=== PATIENT | female | born 2000 | race Caucasian/White ===

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

== ENCOUNTER 2020-04-04 11:47 | Emergency (ER) | payer OTHER, MEDICAID, SELFPAY ==
[2020-04-04 11:58] VITALS: BP 123/71; PULSE 92; RESP 18; TEMP 36.4; O2SAT 100; BMI 21.7
--- NOTE | 2020-04-04 12:13 | ED.EXTPRO ---
HPI - Extremity Problem <DAKOTAH Edwards - Last Filed: 04/04/20 13:51> General Chief complaint: Extremity Problem,Nontraumatic Stated complaint: thinks she has an infection Time Seen by Provider: 04/04/20 11:50 History of Present Illness HPI Narrative: 20yo female presents to the emergency department for swelling in her left index finger. She states she injected heroin into her finger approximately 2 days ago. She noticed some swelling and pain today. She states ?I do not want to get an abscess, I have never had an abscess so I am here to prevent one.Patient states she is able to move her finger, notes tenderness with palpation to the area. She denies any systemic symptoms such as fevers, chills, nausea, vomiting, diarrhea, chest pain, shortness of breath, or other concerns. She denies any other areas of concern. Related Data Home Medications Medication Instructions Recorded Confirmed acetaminophen PO #0 12/05/17 Previous Rx's Medication Instructions Recorded norelgestromin-ethin.estradiol 1 patch TD QWEEK #3 patch 05/28/17 [Xulane] cetirizine 10 mg PO QDAY #14 tab 06/30/17 permethrin 0 jazlyn TOPICAL X1 #60 gm 06/30/17 metronidazole [Flagyl] 500 mg PO BID #14 tab 12/05/17 doxycycline hyclate 100 mg PO BID 10 Days #20 cap 04/04/20 Allergies Allergy/AdvReac Type Severity Reaction Status Date / Time latex [LATEX] Allergy Intermediate HIVES Verified 04/04/20 12:03 ALMONDS Allergy Severe THROAT Uncoded 04/04/20 12:03 SWELLING Review of Systems <DAKOTAH Edwards - Last Filed: 04/04/20 13:51> Review of Systems Narrative: REVIEW OF SYSTEMS: GENERAL: Denies fever or chills. HENT: Denies head trauma. EYE: Denies double vision or vision loss. CARDIOVASCULAR: Denies syncope. MUSCULOSKELETAL: Denies weakness, or deformities. INTEGUMENTARY: Complains of left finger redness, see HPI. NEURO: Denies numbness or tingling. Patient History <DAKOTAH Edwards - Last Filed: 04/04/20 13:51> Medical History Heroin use (Acute) Social History Smoking Status: Current every day smoker Smoking Status: Current every day smoker tobacco type: cigarettes alcohol intake frequency: 0-2 drinks per day Substance Use Type: heroin Exam <DAKOTAH Edwards - Last Filed: 04/04/20 13:51> Initial Vital Signs Initial Vital Signs: Vital Signs Temperature 97.5 F L 04/04/20 11:58 Pulse Rate 92 H 04/04/20 11:58 Respiratory Rate 18 04/04/20 11:58 Blood Pressure 123/71 04/04/20 11:58 Pulse Oximetry 100 04/04/20 11:58 PHYSICAL EXAMINATION: GENERAL: Well groomed, alert, and cooperative. Answers questions promptly and appropriately. Vital signs noted. HENT: Normocephalic, atraumatic. RESPIRATORY: Normal respiratory rate, trachea midline, airway patent. No stridor, nasal flaring or accessory muscle use. MUSCULOSKELETAL: Normal gait and coordination. Equal tone and mass bilaterally. EXTREMITIES: CMS intact. Moves all extremities. SKIN: Warm, dry, soft, appropriate color for ethnicity. There is approximately 2 cm by 4 cm of indurated erythema noted to the lateral aspect of the base of left finger. No swelling or tenderness over MCP or MIP joint. Patient able to move finger without pain or difficulty, full range of motion. No fluctuation palpated. No visualized phlebitis. NEURO: Alert and Oriented X 3. Good coordination. PSYCH: Appropriate affect and mood. <Kolby Nevarez MD - Last Filed: 04/04/20 19:59> Initial Vital Signs Initial Vital Signs: Vital Signs Temperature 97.5 F L 04/04/20 11:58 Pulse Rate 92 H 04/04/20 11:58 Respiratory Rate 18 04/04/20 11:58 Blood Pressure 123/71 04/04/20 11:58 Pulse Oximetry 100 04/04/20 11:58 Course <DAKOTAH Edwards - Last Filed: 04/04/20 13:51> Vital Signs Vital signs: Vital Signs - 8 hr 04/04/20 11:58 Temperature 97.5 F L Pulse Rate 92 H Respiratory Rate 18 Blood Pressure 123/71 Pulse Oximetry 100 <Kolby Nevarez MD - Last Filed: 04/04/20 19:59> Vital Signs Vital signs: Vital Signs - 8 hr 04/04/20 11:58 Temperature 97.5 F L Pulse Rate 92 H Respiratory Rate 18 Blood Pressure 123/71 Pulse Oximetry 100 MDM - Extremity (Nontraumatic) <DAKOTAH Edwards - Last Filed: 04/04/20 13:51> Medical Records Attestation: I reviewed the patient's medical records. Lab Data Attestation: I reviewed the patient's lab results. MDM Narrative Medical decision making narrative: 20-year-old female is a current heroin user, presents emergency department for swelling to her left finger. No fluctuance was palpated, swelling is localized to proximal phalanges, no joint involvement. Patient is hemodynamically stable, no systemic symptoms such as fever or tachycardia. Patient was started on doxycycline to cover for MRSA given high risk for MRSA. No visual phlebitis. She was encouraged to return immediately for any new or worsening symptoms. Patient agreed to plan of care verbalized understanding. Discharge Plan Departure Patient Disposition: Home Clinical Impression: Cellulitis Qualifiers: Site of cellulitis: extremity Site of cellulitis of extremity: upper extremity Laterality: left Qualified Code(s): L03.114 - Cellulitis of left upper limb Discharge Date/Time: 04/04/20 12:25 Instructions: DI for Cellulitis -- Adult Activity Restrictions/Additional Instructions: Thank you for entrusting me with your care today. As discussed, I prescribed you an antibiotic for the infection in your finger. Please soak your finger in warm water and Epson salt multiple times a day. Please return to the emergency department for any new or worsening symptoms such as increasing swelling, redness, purulent drainage, high fevers, or any other concerns. Prescriptions: New doxycycline hyclate 100 mg capsule 100 mg PO BID 10 Days Qty: 20 RF: 0 No Action norelgestromin-ethin.estradiol [Xulane] 0.15 MG/0.035 MG patch weekly 1 patch TD QWEEK Qty: 3 RF: 11 cetirizine 10 MG tablet 10 mg PO QDAY Qty: 14 RF: 0 permethrin 5 % cream 0 jazlyn Topical X1 Qty: 60 RF: 0 acetaminophen 325 mg tablet PO Qty: 0 RF: 0 metronidazole [Flagyl] 500 MG tablet 500 mg PO BID Qty: 14 RF: 0 Referrals: Carrillo Rossi MD [Primary Care Provider] -
== END 2020-04-04 12:25 | disposition home or self-care (01) ==
PROVIDERS: Emergency Provider Nurse Practitioner; Family Provider Pediatrics; PCP Pediatrics
DX: L03.114 Cellulitis of left upper limb (principal)
CPT/HCPCS: 99281

== ENCOUNTER 2021-10-13 05:02 | Emergency (ER) | payer OTHER, MEDICAID, SELFPAY ==
[2021-10-13 05:07] VITALS: BP 119/73; PULSE 103; RESP 17; TEMP 36.1; O2SAT 100; BMI 18.6
--- NOTE | 2021-10-13 05:21 | ED_ITS ---
HPI - Chest Pain General Chief Complaint: Arrhythmia/Palpitations Stated Complaint: Feels heart isnt beating right Time Seen by Provider: 10/13/21 05:05 History of Present Illness HPI narrative: 21-year-old female smoker with history of IV drug abuse presents with a chief complaint of at least a few days of feeling as if her heart is not beating right, irregular, and fast, she can feel it in her neck. She denies chest pain or shortness of breath. She is not dizzy nor weak or lightheaded. She denies any fever chills nor nausea or vomiting. She states that she has developed a decently large abscess that has been draining spontaneously on her left lower leg. Also she admits to upwards of 15 lb of unexplained weight loss over the past few weeks. She denies any dysuria, frequency or urgency. She denies any vaginal bleeding or discharge. She denies any change in her diet Related Data Home Medications Medication Instructions Recorded Confirmed acetaminophen 325 mg tablet PO #0 12/05/17 Previous Rx's Medication Instructions Recorded norelgestromin 150 mcg-e.estradiol 1 patch TD QWEEK #3 patch 05/28/17 35 mcg/24 hr weekly transderm patch (Xulane) cetirizine 10 mg tablet 10 mg PO QDAY #14 tab 06/30/17 permethrin 5 % topical cream 0 jazlyn TOPICAL X1 #60 gm 06/30/17 metronidazole 500 mg tablet 500 mg PO BID #14 tab 12/05/17 (Flagyl) doxycycline hyclate 100 mg tablet 100 mg PO BID #20 tab 10/13/21 Allergies Allergy/AdvReac Type Severity Reaction Status Date / Time latex [LATEX] Allergy Intermediate HIVES Verified 04/04/20 12:03 ALMONDS Allergy Severe THROAT Uncoded 04/04/20 12:03 SWELLING Review of Systems Review of Systems Narrative: GENERAL: See HPI HEENT: Denies sinus pain, ear pain, sore throat, difficulty swallowing, dizziness. RESPIRATORY: Denies dyspnea, cough, wheezing, hemoptysis, sputum. CARDIOVASCULAR: See HPI GASTROINTESTINAL: Denies nausea, vomiting, abdominal pain, diarrhea, constipation, melena. : Denies dysuria, frequency, incontinence, hematuria, urinary retention. MUSCULOSKELETAL: denies weakness, joint pain, or bony pain SKIN: See HPI NEUROLOGIC: Denies weakness, headache, numbness, change in speech, confusion, seizures, incoordination. PSYCHIATRIC: No concerning psychosocial issues. 12 point review of systems is negative except for those stated above Patient History Medical History Heroin use Social History Smoking Status: Current every day smoker Smoking Status: Current every day smoker tobacco type: cigarettes alcohol intake frequency: 0-2 drinks per day Substance Use Type: heroin Exam Narrative Exam Narrative: GENERAL: [21] year old patient appears stated age. Well-developed patient, in mild distress. HEAD: Atraumatic. Normocephalic. EYES: Pupils equal round and reactive. Extraocular motions intact. No scleral icterus. No injection or drainage. ENT: Nose without bleeding, purulent drainage. Throat without erythema, t onsillar hypertrophy or exudate. Airway patent. NECK: Trachea midline. Non tender CARDIOVASCULAR: Regular rate and rhythm without murmurs, gallops, or rubs. RESPIRATORY: Clear to auscultation. Breath sounds equal bilaterally. No wheezes, rales, or rhonchi. GASTROINTESTINAL: Abdomen soft, non-tender, nondistended. EXTREMITIES: 3 x 3 cm area of fluctuance and possible spontaneous drainage with a large area of induration on the left medial calf No edema or joint tenderness. BACK: Nontender without deformity or crepitance. No flank tenderness. NEURO: AOx3. SKIN: No rash or erythema of visible areas Initial Vital Signs Initial Vital Signs: Vital Signs Temperature 97.0 F L 10/13/21 05:07 Pulse Rate 103 H 10/13/21 05:07 Respiratory Rate 17 10/13/21 05:07 Blood Pressure 119/73 10/13/21 05:07 Pulse Oximetry 100 10/13/21 05:07 Procedures Abscess I/D I&D #1: Site: lower extremity Side (if applicable): left Local Anesthetic: lidocaine 1% and with bicarb Amount of anesthesia used (mL): 4 Technique: incised with #11 blade Amount of fluid expressed (mL): 6 Course Orders Ordered: Discontinued Medications Doxycycline Hyclate (Doxycycline Hyclate 100 Mg Tablet) 100 mg PO NOW ONE Stop: 10/13/21 06:53 Last Admin: 10/13/21 06:57 Dose: 100 mg Documented by: KWOYSKI Sodium Chloride (Normal Saline 0.9%) 1,000 mls @ 1,000 mls/hr IV BOLUS ONE Stop: 10/13/21 06:17 Last Admin: 10/13/21 06:57 Dose: Not Given Documented by: DALILA Lidocaine/Sodium Bicarbonate (Lido 1%/Sod Bicarb 8.4% (10ml) 10 Ml Syringe) 10 ml INJ NOW ONE Stop: 10/13/21 05:19 Last Admin: 10/13/21 05:27 Dose: 10 ml Documented by: SRUTHI MDM - Chest Pain Lab Data Result diagrams: 10/13/21 06:00 Labs: Lab Results 10/13/21 10/13/21 10/13/21 Range/Units 05:50 06:00 06:00 Sodium 137 (137-145) mmol/L Potassium 3.6 (3.4-5.1) mmol/L Chloride 104 (98-107) mmol/L Carbon Dioxide 29 (22-32) mmol/L BUN 12 (7-17) mg/dL Creatinine 0.41 L (0.52-1.04) mg/dL Estimated GFR > 60.0 (>60) mL/min BUN/Creatinine Ratio 29.3 H (6-22) Glucose 125 H (70-100) mg/dL Calcium 9.0 (8.4-10.2) mg/dL Magnesium 2.1 (1.6-2.3) mg/dL Total Bilirubin 1.2 (0.2-1.3) mg/dL AST 36 (14-36) IU/L ALT 35 H (<35) IU/L Alkaline Phosphatase 96 (38-126) U/L Total Creatine Kinase 71 (30-135) U/L CK-MB (CK-2) TNP CK-MB (CK-2) Rel Index TNP Troponin I < 0.012 (0.01-0.034) ng/mL Total Protein 7.5 (6.3-8.2) g/dL Albumin 3.9 (3.5-5.0) g/dL Globulin 3.6 (1.7-4.1) g/dL Albumin/Globulin Ratio 1.1 (1.0-2.8) TSH 2.72 (0.47-4.68) uIU/mL Urine RBC None seen (0-5/HPF) Urine WBC 0-1/hpf (0-5/HPF) Ur Squamous Epith Cells 0-1 /hpf (0-5/HPF) Urine Bacteria Occasional (0-1) (None) Ur Culture Indicated? Culture not indicate Urine Dip Bedside Urine Glucose Negative Bedside Urine Bilirubin - Negative Bedside Urine Ketone - Negative Urine Specific [place] 1.010 Bedside Urine Occult Blood - Negative Bedside Urine pH 7.0 Bedside Urine Protein - Negative Bedside Urine Urobilinogen - Negative Bedside Urine Nitrite - Negative Bedside Urine Leukocytes +/- 15 Esterase MDM Narrative Medical decision making narrative: Patient with reassuring history and physical exam. Initially she was slightly tachycardic but calmed down quickly after the initial set of vitals. She has no signs of sepsis or systemic complaints. Abscess was drained, culture obtained and sent, antibiotics initiated. Patient given return precautions and questions answered to her apparent satisfaction Discharge Plan Departure Patient Disposition: Home Clinical Impression: Abscess of left leg, Frequent PVCs Instructions: DI for Arrhythmias, DI for Skin Abscess Activity Restrictions/Additional Instructions: *You have been diagnosed with [ cutaneous abscess with surrounding cellulitis and frequent PVCs] *What to do: *Please continue to take your regular medications as directed. [ ] New medication prescriptions sent to your pharmacy: [ ] [x ] New medication written as a paper prescription [ ] No new medications given *Please follow up with your primary care provider in 2-3 days, call for an appointment. Let them know you were seen in the Emergency Department and that we ask that you be seen in follow up. We will electronically transmit a record of today's note if your PCP is in our system *If you do not have a primary care provider please contact the [facility] [employer] line at [phone]. They will ask some questions about your medical history and help get you set up with a doctor in the community. *Return to Emergency Department if you should have any new, worsening or concerning symptoms, such as [fever greater than 101 F, shaking chills, worsening pain, persistent vomiting or other bothersome symptoms] Prescriptions: New doxycycline hyclate 100 mg tablet 100 mg PO BID Qty: 20 0RF No Action norelgestromin-ethin.estradiol [Xulane] 0.15 MG/0.035 MG patch weekly 1 patch TD QWEEK Qty: 3 11RF cetirizine 10 MG tablet 10 mg PO QDAY Qty: 14 0RF permethrin 5 % cream 0 jazlyn Topical X1 Qty: 60 0RF acetaminophen 325 mg tablet PO Qty: 0 0RF metronidazole [Flagyl] 500 MG tablet 500 mg PO BID Qty: 14 0RF Referrals: Carrillo Rossi MD [Primary Care Provider] -
[2021-10-13] MEDS: LIDO 1%/SOD BICARB 8.4% (10ML) 10 ML SYRINGE INJ (05:27)
--- NOTE | 2021-10-13 06:05 | PC.NURSE ---
Pt with very poor veins due to IV drug use. Dr Brunner attempted EJ; able to draw blood for chemistry but no other labs. Plan to call for US guided midline placement.
[2021-10-13 06:21] LABS: Alanine Aminotransferase 35 IU/L (<35); Albumin 3.9 g/dL (3.5-5.0); Albumin Globulin Ratio 1.1 (1.0-2.8); Alkaline Phosphatase 96 U/L (38-126); Aspartate Aminotransferase 36 IU/L (14-36); BUN Creatinine Ratio 29.3 (6-22); Bilirubin Total 1.2 mg/dL (0.2-1.3); Blood Urea Nitrogen 12 mg/dL (7-17); Carbon Dioxide 29 mmol/L (22-32); Chloride 104 mmol/L (98-107); Creatine Kinase 71 U/L (30-135); Estimated Glomerular Filt Rate > 60.0 mL/min (>60); Globulin 3.6 g/dL (1.7-4.1); Glucose 125 mg/dL (70-100); Magnesium 2.1 mg/dL (1.6-2.3); Potassium 3.6 mmol/L (3.4-5.1); Sodium 137 mmol/L (137-145); Total Protein 7.5 g/dL (6.3-8.2)
[2021-10-13 06:28] LABS: HEMOLYSIS 68 (0-50)
[2021-10-13 06:32] LABS: Troponin I < 0.012 ng/mL (0.01-0.034)
[2021-10-13 06:41] LABS: Bacteria Urine Occasional (0-1); RBC Urine None Seen (0-5/HPF); Squamous Epithelial Cell Urine 0-1 /HPF (0-5/HPF); WBC Urine 0-1/HPF (0-5/HPF)
[2021-10-13 06:51] LABS: Thyroid Stimulating Hormone 2.72 uIU/mL (0.47-4.68)
[2021-10-13] MEDS: DOXYCYCLINE HYCLATE 100 MG TABLET PO (06:57)
[2021-10-13 07:01] VITALS: BP 113/70; PULSE 100; RESP 17; TEMP 36.8; O2SAT 99
== END 2021-10-13 07:06 | disposition home or self-care (01) ==
PROVIDERS: Emergency Provider Emergency Medicine; Family Provider Pediatrics; PCP Pediatrics
DX: L02.416 Cutaneous abscess of left lower limb (principal); B95.61 Methicillin susceptible Staphylococcus aureus infection as the cause of diseases classified elsewhere; Z16.29 Resistance to other single specified antibiotic; I49.3 Ventricular premature depolarization; F17.210 Nicotine dependence, cigarettes, uncomplicated
CPT/HCPCS: 10060; 80053; 81003; 81015; 82550; 83735; 84443; 84484; 87070; 87077; 87086; 87147; 87186; 87205; 93005; 99283; 99284

== ENCOUNTER 2022-04-04 09:47 | Emergency (ER) | payer OTHER, MEDICAID, SELFPAY ==
[2022-04-04 09:54] VITALS: BP 138/90; PULSE 82; RESP 16; TEMP 36.8; O2SAT 100; BMI 22.4
--- NOTE | 2022-04-04 09:57 | DI.RAD.S_ITS ---
PROCEDURE: XR CHEST 2V INDICATIONS: SOB, fatigue TECHNIQUE: 2 views of the chest were acquired. COMPARISON: [facility], , CHEST 2 VIEW, 10/26/2008, 22:32. FINDINGS: Surgical changes and devices: None. Lungs and pleura: Lungs are clear. No pleural effusions or pneumothorax. Mediastinum: Mediastinal contours are normal. Heart size is normal. Bones and chest wall: No suspicious bony abnormalities. Soft tissues appear unremarkable. IMPRESSION: No acute radiographic abnormality. Dictated by: Getachew Pena M.D. on 04/04/2022 at 17:27 Approved by: Getachew Pena M.D. on 04/04/2022 at 17:28
--- NOTE | 2022-04-04 10:57 | ED_ITS ---
HPI - Chest Pain General Chief Complaint: Chest Pain Stated Complaint: Heart feels like its going to give out Time Seen by Provider: 04/04/22 09:53 Source: patient Mode of arrival: Ambulatory Limitations: no limitations History of Present Illness HPI narrative: 22-year-old female smoker with history of IV drug abuse presents with a chief complaint of at least a few days of feeling as if her heart is not beating right. She has felt fatigued and generally unwell. She denies any chest pain or shortness of breath but states that she just feels off. She is not dizzy or lightheaded. She denies any fever or chills. She is had no nausea, vomiting or diarrhea. She does continue to use intravenous drugs and states that she had re cooked some heroin and started feeling poorly nearly immediately after about 1 week ago. She denies abdominal pain, dysuria, frequency or urgency. She denies vaginal bleeding or discharge Related Data Home Medications Medication Instructions Recorded Confirmed acetaminophen 325 mg tablet PO ##0 12/05/17 Previous Rx's Medication Instructions Recorded norelgestromin 150 mcg-e.estradiol 1 patch TD QWEEK #3 patches 05/28/17 35 mcg/24 hr weekly transderm patch (Xulane) cetirizine 10 mg tablet 10 mg PO QDAY #14 tabs 06/30/17 permethrin 5 % topical cream 0 jazlyn topical X1 ##60 06/30/17 metronidazole 500 mg tablet 500 mg PO BID #14 tabs 12/05/17 (Flagyl) doxycycline hyclate 100 mg tablet 100 mg PO BID #20 tabs 10/13/21 Allergies Allergy/AdvReac Type Severity Reaction Status Date / Time latex [LATEX] Allergy Intermediate HIVES Verified 04/04/22 09:57 ALMONDS Allergy Severe THROAT Uncoded 04/04/20 12:03 SWELLING Review of Systems Review of Systems Narrative: GENERAL: see HPI HEENT: Denies sinus pain, ear pain, sore throat, difficulty swallowing, dizziness. RESPIRATORY: Denies dyspnea, cough, wheezing, hemoptysis, sputum. CARDIOVASCULAR: see HPI GASTROINTESTINAL: Denies nausea, vomiting, abdominal pain, diarrhea, constipation, melena. : Denies dysuria, frequency, incontinence, hematuria, urinary retention. MUSCULOSKELETAL: denies weakness, joint pain, or bony pain SKIN: Denies rash, skin lesions, or other NEUROLOGIC: Denies weakness, headache, numbness, change in speech, confusion, seizures, incoordination. PSYCHIATRIC: No concerning psychosocial issues. 12 point review of systems is negative except for those stated above Patient History Medical History Heroin use Social History Smoking Status: Current every day smoker Smoking Status: Current every day smoker tobacco type: vaping alcohol intake frequency: holidays/special occasions only Substance Use Type: heroin Exam Narrative Exam Narrative: GENERAL: [22] year old patient appears stated age. Well-developed patient, in No obvious distress, though seems a bit anxious. GCS 15 HEAD: Atraumatic. Normocephalic. EYES: Pupils equal round and reactive. Extraocular motions intact. No scleral icterus. No injection or drainage. ENT: Nose without bleeding, purulent drainage. Throat without erythema, tonsillar hypertrophy or exudate. Airway patent. NECK: Trachea midline. Non tender CARDIOVASCULAR: Regular rate and rhythm without murmurs, gallops, or rubs. RESPIRATORY: Clear to auscultation. Breath sounds equal bilaterally. No wheezes, rales, or rhonchi. GASTROINTESTINAL: Abdomen soft, non-tender, nondistended. EXTREMITIES: No edema or joint tenderness. BACK: Nontender without deformity or crepitance. No flank tenderness. NEURO: AOx3. SKIN: No rash or erythema of visible areas Initial Vital Signs Initial Vital Signs: Vital Signs Temperature 98.2 F 04/04/22 09:54 Pulse Rate 82 04/04/22 09:54 Respiratory Rate 16 04/04/22 09:54 Blood Pressure 138/90 04/04/22 09:54 Pulse Oximetry 100 04/04/22 09:54 Oxygen Delivery Method 04/04/22 09:54 Course Orders Ordered: ED Orders 04/04/22 09:57 Chest [XR chest 2V] Stat EC echo doppler complete Stat BNP [NT-proBNP (BNP-Adult 18+)] Stat Blood Culture Stat CBC Auto Diff [Complete Blood Count AUTO DIFF] Stat CMP [Comprehensive Metabolic Panel] Stat Troponin & CK Cardiac Panel Stat EKG-12 Lead Stat Vital Signs Vital signs: Vital Signs - 8 hr 04/04/22 09:54 Temperature 98.2 F Pulse Rate 82 Respiratory Rate 16 Blood Pressure 138/90 Pulse Oximetry 100 Oxygen Delivery Method Room Air MDM - Chest Pain MDM Narrative Medical decision making narrative: multiple attempts to obtain IV access and blood draw were unsuccessful, PICC team activated, however patient stated she had to leave to go pepper picker her child. There was extensive discussion with patient and she understands the concerns about the possible underlying diagnoses including infection, arrhythmia, electrolyte abnormality, endocarditis among others. A stat echo had been ordered as well. Patient understands that by refusing this workup she puts herself at risk for significant illness, permanent disability or even . She understands that she may return at any time for ongoing concerns and without any repercussions. She has full capacity to make this decision, she is alert, oriented x3 with GCS of 15. Discharge Plan Departure Patient Disposition: Left Against Medical Advice Clinical Impression: Left against medical advice Prescriptions: No Action norelgestromin-ethin.estradiol [Xulane] 0.15 MG/0.035 MG patch weekly 1 patch TD QWEEK Qty: 3 11RF cetirizine 10 MG tablet 10 mg PO QDAY Qty: 14 0RF permethrin 5 % cream 0 jazlyn Topical X1 Qty: 60 0RF acetaminophen 325 mg tablet PO Qty: 0 metronidazole [Flagyl] 500 MG tablet 500 mg PO BID Qty: 14 0RF doxycycline hyclate 100 mg tablet 100 mg PO BID Qty: 20 0RF Referrals: Carrillo Rossi MD [Primary Care Provider] - Stand Alone Forms: Against Medical Advice
== END 2022-04-04 11:07 | disposition left against medical advice (07) ==
PROVIDERS: Emergency Provider Emergency Medicine; Family Provider Pediatrics; PCP Pediatrics
DX: R07.9 Chest pain, unspecified (principal)
CPT/HCPCS: 71046; 93005; 93010; 99281; 99283

== ENCOUNTER 2023-07-11 15:59 | Emergency (ER) | payer OTHER, MEDICAID, SELFPAY ==
[2023-07-11] VITALS (7 sets, daily range): BP systolic 101–115; BP diastolic 58–76; PULSE 110–119; RESP 14; TEMP 37.2; O2SAT 100; BMI 20.9
--- NOTE | 2023-07-11 18:32 | PC.NURSE ---
Pt has bilateral pink ulcerative skin on lower calfs . Pt has yellow drainage from from both calfs with a foul odor. Dr. Alva at bedside for undressing wounds. Pt is ambulatory. Pt complains of pain from both lower extremities.
--- NOTE | 2023-07-11 18:36 | PC.NURSE ---
This RN attempted an ultrasound IV. Attempt failed. Lab called to try and attempt to draw labs. Lab unable to draw as well. Dr. Burris at bedside.
--- NOTE | 2023-07-11 18:39 | ED.EXTPRO ---
HPI - Extremity Problem General Chief complaint: Extremity Problem,Nontraumatic Stated complaint: BL leg infection t-4 Time Seen by Provider: 07/11/23 17:59 Source: patient Mode of arrival: Ambulatory History of Present Illness HPI Narrative: Patient is a 23-year-old female. 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 She has had bilateral lower extremity ulcerations and infections for the past several months potentially even year longer. She states she is been seen multiple times for this. Has been on antibiotics a couple times in the past. She does not know what antibiotics she is been on. She is not currently on antibiotics. She has been referred to wound care although she states that every time that she calls no one answers. She is left messages and has not had any return phone calls. She comes in the emergency department today because she has having increasing redness to her right lower extremity. She has her continued redness to the left lower extremity. She was concerned that maybe she was ?septic? she states that she does not want admitted in the hospital. She also states she would a positive home test a couple weeks ago. She has no idea how far along she potentially is. Patient is not having any abdominal pain, vaginal bleeding, vaginal discharge or loss of fluid. Related Data Home Medications Medication Instructions Recorded Confirmed acetaminophen 325 mg tablet PO ##0 12/05/17 Previous Rx's Medication Instructions Recorded norelgestromin 150 mcg-e.estradiol 1 patch TD QWEEK #3 patches 05/28/17 35 mcg/24 hr weekly transderm patch (Xulane) cetirizine 10 mg tablet 10 mg PO QDAY #14 tabs 06/30/17 permethrin 5 % topical cream 0 jazlyn topical X1 ##60 06/30/17 metronidazole 500 mg tablet 500 mg PO BID #14 tabs 12/05/17 (Flagyl) doxycycline hyclate 100 mg tablet 100 mg PO BID #20 tabs 10/13/21 clindamycin HCl 300 mg capsule 300 mg PO Q6H 10 days #40 caps 07/11/23 vit no.95-ferrous 1 tab PO DAILY #60 tabs 07/11/23 fumarate 28 mg-folic acid 800 mcg tablet ( Multivitamins) Allergies Allergy/AdvReac Type Severity Reaction Status Date / Time latex [LATEX] Allergy Intermediate HIVES Verified 04/04/22 09:57 ALMONDS Allergy Severe THROAT Uncoded 04/04/20 12:03 SWELLING Review of Systems Constitutional Constitutional: Reports system reviewed and no additional complaints, except as documented Cardiovascular Cardiovascular: Reports system reviewed and no additional complaints, except as documented Respiratory Respiratory: Reports system reviewed and no additional complaints, except as documented Gastrointestinal Gastrointestinal: Reports system reviewed and no additional complaints, except as documented Integumentary/Breasts Skin/Breast: Reports system reviewed and no additional complaints, except as documented Neurologic Neurologic: Reports system reviewed and no additional complaints, except as documented Patient History Medical History Heroin use Social History Smoking Status: Current every day smoker Smoking Status: Current every day smoker tobacco type: cigarettes and vaping alcohol intake frequency: holidays/special occasions only Substance Use Type: heroin and other Exam Initial Vital Signs Initial Vital Signs: Vital Signs Temperature 98.9 F 07/11/23 16:20 Pulse Rate 119 H 07/11/23 16:20 Respiratory Rate 14 07/11/23 16:20 Blood Pressure 114/63 07/11/23 16:20 Pulse Oximetry 100 07/11/23 16:20 Oxygen Delivery Method Room Air 07/11/23 16:20 Const General: cooperative HENMT Head: normal to inspection and normocephalic Resp Effort & Inspection: normal respiratory effort Cardio Rate: regular rate Skin Other: Patient has swelling to bilateral lower extremities. She has redness from her ankles to her knees bilateral. She is ulcerations in various stages of healing located throughout the lower legs. There is some oozing from these ulcerations. No purulent drainage. Neuro General: patient alert, patient awake, patient oriented x3 and moves all extremities Extrem Other: Edema bilateral lower extremity Course Orders Ordered: ED Orders 07/11/23 18:35 Wound Culture and Gram Stain Stat Wound Culture and Gram Stain Stat 07/11/23 18:55 Ictotest Urine Stat Urine Culture Stat Urine Microscopic Stat Discontinued Medications Clindamycin HCl (Clindamycin 150 Mg Capsule) 300 mg PO NOW ONE Stop: 07/11/23 19:04 Last Admin: 07/11/23 19:22 Dose: 300 mg Documented By: KH Sodium Chloride (Normal Saline 0.9%) 1,000 mls @ 1,000 mls/hr IV BOLUS ONE Stop: 07/11/23 17:40 Last Admin: 07/11/23 19:23 Dose: Not Given Documented By: SANTO Vital Signs Vital signs: Vital Signs - 8 hr 07/11/23 18:26 07/11/23 18:27 07/11/23 18:27 Pulse Rate 117 H 115 H Blood Pressure 109/76 Pulse Oximetry 100 100 07/11/23 18:30 07/11/23 18:30 07/11/23 19:27 Pulse Rate 110 H 117 H Blood Pressure 106/64 Pulse Oximetry 100 100 07/11/23 19:27 07/11/23 19:30 07/11/23 19:30 Pulse Rate 117 H Blood Pressure 101/58 L 110/64 Pulse Oximetry 100 07/11/23 20:00 07/11/23 20:00 Pulse Rate 110 H Blood Pressure 115/66 Pulse Oximetry 100 MDM - Extremity (Nontraumatic) Lab Data Labs: Lab Results 07/11/23 Range/Units 18:55 Ur Bilirubin Confirm Negative (Negative) Urine RBC None seen (0-5/HPF) Urine WBC 0-1/hpf (0-5/HPF) Ur Squamous Epith Cells >30 /hpf H D (0-5/HPF) Calcium Oxalate Crystal Many H Urine Bacteria Moderate (10-30) H (None) Urine Mucus 4+ H (Negative) Ur Culture Indicated? Specimen cultured Point of Care Testing Test Results Positive Urine Dip Bedside Urine Glucose Negative Bedside Urine Bilirubin + 1 Bedside Urine Ketone - Negative Urine Specific [place] 1.025 Bedside Urine Occult Blood - Negative Bedside Urine pH 6.0 Bedside Urine Protein +/- 15 Bedside Urine Urobilinogen - Negative Bedside Urine Nitrite - Negative Bedside Urine Leukocytes - Negative Esterase MDM Narrative Medical decision making narrative: Patient is tachycardic but is not febrile. Not hypoxic. She has ulcerations very stages of healing in bilateral lower extremities from her ankles to her knees. I do have some concern that there is a cellulitis related to her right lower extremity. Initially had a difficult time obtaining any sort of IV access. We discussed with her trying to obtain a ultrasound guided IV but the patient declined. She states she does not want admitted to the hospital. She does appear chronically ill. Cultures were obtained of the wounds on both her right knee left lower extremity. She tolerated a dose of clindamycin here in the ER. A prescription was sent to the pharmacy of her choice for remainder of the course. Her test is positive today. I recommended that we obtain a ultrasound she does not know how far along she is. She is not having any specific OB related complaints. As the library acquisitions technician arrived the patient stated that she had to go home. She stated that her ride was here. She did not want to stay for the ultrasound. I did have a discussion with her stating that she should consider treatment for her methamphetamine and fentanyl abuse is this is most likely a main source of the issues that she is having with her lower extremities. We also discussed the danger that composed to her . She expressed understanding of this. I did give her information for follow-up with OB. I did prescribe her vitamins. She was given return precautions. She expressed understanding and agreement. Discharge Plan Departure Patient Disposition: Home Clinical Impression: , Cellulitis Instructions: DI for Cellulitis -- Adult Activity Restrictions/Additional Instructions: It is important that you take the antibiotics as directed and also start taking the vitamins. You did have a positive test today. Highly recommend that you consider stopping the fentanyl and methamphetamine use. I recommend you contact the OB doctors of the number provided below for a follow-up. Return to the emergency department for new or worsening symptoms. Prescriptions: New clindamycin HCl 300 mg capsule 300 mg PO Q6H 10 Days Qty: 40 0RF PNV cmb#95-ferrous fumarate-FA [ Multivitamins] 28 mg iron- 800 mcg tablet 1 tab PO DAILY Qty: 60 2RF No Action norelgestromin-ethin.estradiol [Xulane] 0.15 MG/0.035 MG patch weekly 1 patch TD QWEEK Qty: 3 11RF cetirizine 10 MG tablet 10 mg PO QDAY Qty: 14 0RF permethrin 5 % cream 0 jazlyn Topical X1 Qty: 60 0RF acetaminophen 325 mg tablet PO Qty: 0 metronidazole [Flagyl] 500 MG tablet 500 mg PO BID Qty: 14 0RF doxycycline hyclate 100 mg tablet 100 mg PO BID Qty: 20 0RF Referrals: Zena Cook MD [Physician] - Carrillo Rossi MD [Primary Care Provider] - Stand Alone Forms: Patient Portal/API
[2023-07-11 19:13] LABS: Ictotest Urine Negative (Negative)
[2023-07-11] MEDS: CLINDAMYCIN 150 MG CAPSULE 300 MG PO (19:22)
[2023-07-11 19:29] LABS: Bacteria Urine Moderate (10-30); Calcium Oxalate Crystals Urine Many; Culture Indicated Urine Specimen Cultured; Mucus Urine 4+ (Negative); RBC Urine None Seen (0-5/HPF); Squamous Epithelial Cell Urine >30 /HPF (0-5/HPF); WBC Urine 0-1/HPF (0-5/HPF)
--- NOTE | 2023-07-11 19:30 | PC.NURSE ---
Bilateral lower extremeties wrappred and dressed by RN. pt tolerated well.
--- NOTE | 2023-07-11 20:05 | PC.NURSE ---
US in room pt refused US stated her ride was here and she needed to leave now, Dr [place] jc
== END 2023-07-11 20:17 | disposition home or self-care (01) ==
PROVIDERS: Emergency Provider Emergency Medicine; Family Provider Pediatrics; PCP Pediatrics
DX: L03.116 Cellulitis of left lower limb (principal); L03.115 Cellulitis of right lower limb; B95.62 Methicillin resistant Staphylococcus aureus infection as the cause of diseases classified elsewhere; Z33.1 Pregnant state, incidental
CPT/HCPCS: 81003; 81015; 81025; 87070; 87075; 87077; 87086; 87147; 87186; 87205; 96360; 99283

== ENCOUNTER 2023-08-07 02:26 | Emergency (ER) | payer OTHER, MEDICAID, SELFPAY ==
[2023-08-07 02:45] VITALS: BP 136/70; PULSE 99; RESP 16; TEMP 37.2; O2SAT 99; BMI 21.6
--- NOTE | 2023-08-07 03:05 | DI.US.S_ITS ---
PROCEDURE: US OB <= 14 WEEKS FETUS INDICATIONS: POSSIBLY LEAKING FLUID OUTSIDE/PRIOR DATING DATA: Last menstrual period (LMP): Unknown. LMP-based estimated date of delivery (ASHLY): Not applicable. First dating scan (date and location): 08/07/2023. Estimated date of delivery (ASHLY) from first dating scan: 02/22/2024. TECHNIQUE: Real-time scanning was performed of the fetus and maternal pelvic organs, with image documentation. Endovaginal scanning was also performed to better visualize the fetus and maternal ovaries. COMPARISON: None. FINDINGS: Intrauterine gestation sac visualized. Embryo: Present, measuring 4.8 centimeters, 11 weeks 4 days. Heart rate: 169 beats per minute. Maternal organs: Ovaries not visualized due to overlying bowel gas. IMPRESSION: Single living intrauterine at 11 weeks 4 days, ASHLY of 02/22/2024. No acute abnormality. Agree with preliminary report. We strive to produce accurate, complete, and clear reports of imaging services. To assist us in improving patient care, this report was composed using standard report templates and voice recognition software. Therefore, it may contain abnormal punctuation, insertions and/or omissions. Occasional wrong-word or sound-alike substitutions may occur. Though we review the report and make efforts to correct it, we do recommend that the report be read carefully in proper context to recognize any text inaccuracies. Dictated by: Chicho Flanagan M.D. on 08/07/2023 at 7:22 Approved by: Chicho Flanagan M.D. on 08/07/2023 at 7:24
--- NOTE | 2023-08-07 03:48 | ED_ITS ---
HPI - General Chief complaint: OB/Uterine Contractions Stated complaint: and leaking fluid from down there Time Seen by Provider: 08/07/23 03:25 Source: patient Mode of arrival: Ambulatory Limitations: no limitations History of Present Illness HPI Narrative: 23-year-old female who had a positive test within the last week. She is not sure about how far her being have progressed, she is concern that she may have been leaking amniotic fluid tonight. Says she had a little bit of clear vaginal discharge. There was no blood she does not have any cramping or pain she is not had any pain with intercourse. Is not having urinary symptoms. Patient is subsequently discloses that she has opioid use disorder and inquires about where she can go for treatment. Related Data Home Medications Medication Instructions Recorded Confirmed acetaminophen 325 mg tablet PO ##0 12/05/17 Previous Rx's Medication Instructions Recorded norelgestromin 150 mcg-e.estradiol 1 patch TD QWEEK #3 patches 05/28/17 35 mcg/24 hr weekly transderm patch (Xulane) cetirizine 10 mg tablet 10 mg PO QDAY #14 tabs 06/30/17 permethrin 5 % topical cream 0 jazlyn topical X1 ##60 06/30/17 metronidazole 500 mg tablet 500 mg PO BID #14 tabs 12/05/17 (Flagyl) doxycycline hyclate 100 mg tablet 100 mg PO BID #20 tabs 10/13/21 vit no.95-ferrous 1 tab PO DAILY #60 tabs 07/11/23 fumarate 28 mg-folic acid 800 mcg tablet ( Multivitamins) Allergies Allergy/AdvReac Type Severity Reaction Status Date / Time latex [LATEX] Allergy Intermediate HIVES Verified 04/04/22 09:57 ALMONDS Allergy Severe THROAT Uncoded 04/04/20 12:03 SWELLING Exam Initial Vital Signs Initial Vital Signs: Vital Signs Temperature 98.9 F 08/07/23 02:45 Pulse Rate 99 H 08/07/23 02:45 Respiratory Rate 16 08/07/23 02:45 Blood Pressure 136/70 08/07/23 02:45 Pulse Oximetry 99 08/07/23 02:45 Oxygen Delivery Method Room Air 08/07/23 02:45 Const General: healthy appearing and No acute distress Resp Effort & Inspection: normal respiratory effort Cardio Rate: regular rate GI Palpation: soft and No tender Skin General: dry skin and warm Course Orders Ordered: ED Orders 08/07/23 03:05 US OB <= 14 weeks fetus Stat 08/07/23 03:10 Urine Culture Stat Urine Microscopic Stat Vital Signs Vital signs: Vital Signs - 8 hr 08/07/23 02:45 08/07/23 04:25 Temperature 98.9 F Pulse Rate 99 H 87 Respiratory Rate 16 23 Blood Pressure 136/70 147/87 H Pulse Oximetry 99 97 Oxygen Delivery Method Room Air Room Air MDM - OB/Uterine Contractions Lab Data Lab results narrative: test is positive. Has a few white cells and a few bacteria on a voided specimen. Urine is sent for culture Labs: Lab Results 08/07/23 Range/Units 03:10 Urine RBC None seen (0-5/HPF) Urine WBC 1-5/hpf (0-5/HPF) Ur Squamous Epith Cells None seen D (0-5/HPF) Urine Bacteria Few (2-10) H (None) Urine Mucus 1+ H D (Negative) Ur Culture Indicated? Specimen cultured Point of Care Testing Test Results Positive Urine Dip Bedside Urine Glucose Negative Bedside Urine Bilirubin - Negative Bedside Urine Ketone - Negative Urine Specific [place] 1.025 Bedside Urine Occult Blood - Negative Bedside Urine pH 6 Bedside Urine Protein - Negative Bedside Urine Urobilinogen - Negative Bedside Urine Nitrite - Negative Bedside Urine Leukocytes + 70 Esterase Imaging Data US - CASH SPECIALIST: Radiologist's Impression: Single live intrauterine estimated at 11 weeks 4 days gestational age by today's ultrasound criteria [facility] Narrative Medical decision making narrative: 23-year-old female with some painless vaginal discharge that is not bleeding. She is at about 11 weeks. This would not be viable if she is having leakage of fluid. She is not appeared to be in the process of a miscarriage at the moment. I considered but do not suspect STIs. And no other symptoms at present. Patient is reassured I advised her to follow up with Gynecology. Discharge Plan Departure Patient Disposition: Home Clinical Impression: Clear vaginal discharge Activity Restrictions/Additional Instructions: Ultrasound tonight is reassuring. We see a viable between 11 and 13 weeks gestational age. I think it is safe to go home, if you are having cramping increased bleeding or other acute symptoms recheck in the emergency department. Follow up soon with your OBGYN provider. With regard to your question about treatment for opiate use disorder, you can contact ryan at [phone], I have also provided information on other possible resources for substance use disorder treatment while . Prescriptions: No Action norelgestromin-ethin.estradiol [Xulane] 0.15 MG/0.035 MG patch weekly 1 patch TD QWEEK Qty: 3 11RF cetirizine 10 MG tablet 10 mg PO QDAY Qty: 14 0RF permethrin 5 % cream 0 jazlyn Topical X1 Qty: 60 0RF acetaminophen 325 mg tablet PO Qty: 0 metronidazole [Flagyl] 500 MG tablet 500 mg PO BID Qty: 14 0RF PNV cmb#95-ferrous fumarate-FA [ Multivitamins] 28 mg iron- 800 mcg tablet 1 tab PO DAILY Qty: 60 2RF doxycycline hyclate 100 mg tablet 100 mg PO BID Qty: 20 0RF Referrals: Carrillo Rossi MD [Primary Care Provider] - Stand Alone Forms: Patient Portal/API
[2023-08-07 04:20] LABS: Bacteria Urine Few (2-10); Culture Indicated Urine Specimen Cultured; Mucus Urine 1+ (Negative); RBC Urine None Seen (0-5/HPF); Squamous Epithelial Cell Urine None Seen (0-5/HPF); WBC Urine 1-5/HPF (0-5/HPF)
[2023-08-07 04:25] VITALS: BP 147/87; PULSE 87; RESP 23; O2SAT 97
== END 2023-08-07 04:37 | disposition home or self-care (01) ==
PROVIDERS: Emergency Provider Emergency Medicine; Family Provider Pediatrics; PCP Pediatrics
DX: O26.891 Other specified pregnancy related conditions, first trimester (principal); N89.8 Other specified noninflammatory disorders of vagina; Z3A.11 11 weeks gestation of pregnancy
CPT/HCPCS: 76801; 76817; 81003; 81015; 81025; 87086; 99282; 99283